=== PATIENT | female | born 2005 | race African-American/Black ===

== ENCOUNTER 2025-06-12 20:10 | Emergency (ER) | payer OTHER ==
[2025-06-12 21:36] LABS: Glucose, Urine (Dipstick) Normal (Negative); Leukocyte 25 (Negative); Protein, Urine (Dipstick) Negative (Neg-Trace); Specific Gravity, Urine 1.025 (1.005-1.030)
[2025-06-12 21:39] LABS: Pregnancy Test - Urine (BHCG) Negative (Negative); Pregu Control Background? CLEAR/WHITE (CLR/WHITE); Pregu Control Bar Appear? YES (CONTROL BAR)
[2025-06-12] MEDS ORDERED: Lidocaine 1% PF 5 ML VIAL ONE (21:46)
[2025-06-12] MEDS ORDERED: cefTRIAXone (ROCEPHIN) 1 GM VIAL ONE (21:46)
[2025-06-12 22:03] LABS: RBC/HPF 0-3 HPF (0-3)
[2025-06-12 22:04] LABS: Bacteria/HPF 2+ HPF (None Seen); CAUTI Indications for Culture Pelvic or flank pain
[2025-06-12 22:06] LABS: Mucous/LPF 1+ LPF (<2+)
[2025-06-12 22:10] LABS: Urine Culture Reflex No No
== END 2025-06-12 22:25 ==
LOC: CSHERS 20:10
DX: R42 Dizziness and giddiness (principal); N39.0 Urinary tract infection, site not specified; R29.700 NIHSS score 0; J45.909 Unspecified asthma, uncomplicated; Z79.51 Long term (current) use of inhaled steroids
CPT/HCPCS: 81001; 81025; 93005; 96372; 99284; J0696